=== PATIENT | male | born 1990 | race Caucasian/White ===

== ENCOUNTER → 2018-08-15 | Outpatient (CLI) | payer MEDICAID ==
--- NOTE | 2018-08-15 20:27 | ECHOF ---
Referral Reason:R07.2 Precordial painR00.2 Palpations MEASUREMENTS -------- HEIGHT: 172.7 cm WEIGHT: 76.2 kg BP: IVSd: 1.0 cm (0.6 - 1.1) LVIDd: 4.7 cm (3.9 - 5.3) LVPWd: 1.0 cm (0.6 - 1.1) IVSs: 1.5 cm LVIDs: 3.0 cm LVPWs: 1.6 cm RVIDd: 2.2 cm (< 3.3) LAESV Index (A-L): 17.69 ml/m Ao Diam: 2.8 cm (2.0 - 3.7) LA Diam: 2.9 cm (2.7 - 3.8) AV Cusp: 2.0 cm (1.5 - 2.6) EPSS: 1.0 cm MV E Sebastián: 0.99 m/s MV DecT: 211 ms MV A Sebastián: 0.55 m/s MV E/A Ratio: 1.80 RAP: 5.00 mmHg RVSP: 19.44 mmHg MV EF SLOPE: 251.44 mm/s (70 - 150) MV EXCURSION: 28.96 mm (> 18.000) FINDINGS -------- Sinus rhythm with extra systolic beats. This was a technically good study. The left ventricular size is normal. Left ventricular wall thickness is normal. Overall left vent ricular systolic function is normal with, an EF between 55 - 60 %. The right ventricle is normal in size and function. The left atrium is normal in size. The right atrium is normal in size. The aortic valve is trileaflet, and appears structurally normal. No aortic stenosis or regurgitation. There is trace mitral regurgitation. Trace tricuspid regurgitation present. The right ventricular systolic pressure, as measured by Dopp ler, is 19.44mmHg. Pulmonic valve appears structurally normal. The aortic root size is normal. Normal inferior vena cava with normal inspiratory collapse consistent with estimated right atrial pre ssure of 5 mmHg. The pericardium is normal. CONCLUSIONS -------- 1. Sinus rhythm with extra systolic beats. 2. This was a technically good study. 3. The left ventricular size is normal. 4. Left ventricular wall thickness is normal. 5. Overall left ventricular systolic function is normal with, an EF between 55 - 60 %. 6. The right ventricle is normal in size and function. 7. The left atrium is normal in size. 8. The right atrium is normal in size. 9. The aortic valve is trileaflet, and appears structurally normal. No aortic stenosis or regurgitati on. 10. There is trace mitral regurgitation. 11. Trace tricuspid regurgitation present. 12. The right ventricular systolic pressure, as measured by Doppler, is 19.44mmHg. 13. Pulmonic valve appears structurally normal. 14. The aortic root size is normal. 15. Normal inferior vena cava with normal inspiratory collapse consistent with estimated right atrial pressure of 5 mmHg. 16. The pericardium is normal. SENIOR STAFF CONSULTANT: Love Walsh RDCS
--- NOTE | 2018-08-16 12:28 | EST ---
EXERCISE STRESS AGE: 27 SEX: M HT: 68" WT: 168 PROTOCOL: Stress Test STAGE: 4 DURATION OF EXERCISE: 9:40 HEART RATE REST: 69 BLOOD PRESSURE REST: 136/85 MAXIMUM HEART RATE ACHIEVED: 147 MAXIMUM BLOOD PRESSURE: 204/96 85% MPHR: 165 100% MPHR: 194 METS: 11.3 INDICATIONS: Chest pain, tachycardia CLINICAL INFORMATION: Baseline heart rate 69 beats per minute. Baseline blood pressure 136/85 mmHg. Baseline 12-lead ECG shows normal sinus rhythm with normal cardiac intervals, normal ST segments. Patient exercised on a Last protocol for 9 minutes 40 seconds achieving a peak heart rate of 147 beats per minute. Hypertensive response to exercise was noted. Peak blood pressure 204/96 mmHg. There was no ECG evidence for ischemia. No arrhythmias noted. IMPRESSION: 1. Excellent exercise capacity. 2. Hypertensive response to exercise. 3. No ECG evidence for ischemia. MMODL / IJN: [id number] /
== END | disposition home or self-care (01) ==
LOC: RADNMMAIN 08:47 → MERGE 09:00
PROVIDERS: ATTEND Internal Medicine Clinical Cardiac Electrophysiology
DX: R00.2 Palpitations (principal); R07.2 Precordial pain
CPT/HCPCS: 93017; 93225; 93226; 93306

== ENCOUNTER → 2018-11-08 | Outpatient (CLI) | payer MEDICAID ==
--- NOTE | 2018-11-08 14:38 | XR ---
EXAMINATION TYPE: XR elbow complete bilateral DATE OF EXAM: 11/08/2018 CLINICAL HISTORY: Chronic pain and stiffness of the bilateral elbows TECHNIQUE: Frontal, lateral and oblique images of the both elbows were obtained. COMPARISON: None FINDINGS: There is no acute fracture/dislocation evident in either elbow. No abnormal fat pad signs are seen. The overlying soft tissue appears unremarkable. No radiopaque foreign body. Osseous mica miner alization is within normal limits. No significant arthropathy is seen radiographically. No suspicious lesion. IMPRESSION: There is no acute fracture or dislocation in either elbow. No suspicious lesion nor radi ographic arthropathy.
--- NOTE | 2018-11-08 14:41 | XR ---
EXAMINATION TYPE: XR hand complete bilateral DATE OF EXAM: 11/08/2018 CLINICAL HISTORY: Chronic pain and stiffness of the bilateral hands TECHNIQUE: Frontal, lateral and oblique images of the bilateral hands were obtained. COMPARISON: None. FINDINGS: There is no acute fracture/dislocation evident in either hand. The joint spaces in the bailey ateral hands appear within normal limits other than small erosion of the trapezius on the left. The overlying soft tissue appears unremarkable. No suspicious osseous lesion. Punctate densities are seen of the bilateral lower aspect of the thumbs near the distal interphalangeal joints that may represen t skin calcifications are less likely foreign bodies. Osseous mineralization is within normal limits. IMPRESSION: There is no acute fracture or dislocation in either hand. Small erosion of the left trap ezius may relate to early arthropathy. Gout or pseudogout could be considered. Punctate densities ove r the volar surface of the thumbs appear as skin calcifications or punctate foreign bodies overlying the distal interphalangeal joints.
== END | disposition home or self-care (01) ==
LOC: RADXRMAIN 08:41
PROVIDERS: ATTEND Family Medicine
DX: M25.521 Pain in right elbow (principal); M79.641 Pain in right hand

== ENCOUNTER → 2018-11-29 | Outpatient (CLI) | payer MEDICAID ==
[2018-11-29 09:34] LABS: Basophils % (A) 1 %; Eosinophils # (A) 0.1 k/uL (0-0.7); Eosinophils % (A) 2 %; HCT 43.7 % (39.0-53.0); HGB 15.3 gm/dL (13.0-17.5); Lymphocytes # (A) 1.6 k/uL (1.0-4.8); Lymphocytes % (A) 36 %; MCH 30.8 pg (25.0-35.0); MCV 88.2 fL (80.0-100.0); Mean Platelet Volume 8.6; Monocytes # (A) 0.4 k/uL (0-1.0); Monocytes % (A) 8 %; Neutrophils # (A) 2.4 k/uL (1.3-7.7); Neutrophils % (A) 52 %; Platelet Count 190 k/uL (150-450); RBC 4.95 m/uL (4.30-5.90); RDW 12.8 % (11.5-15.5); WBC 4.5 k/uL (3.8-10.6)
[2018-11-29 09:35] LABS: Appearance,Urine Clear (Clear); Bilirubin,Urine Negative (Negative); Blood,Urine Negative (Negative); Color,Urine Yellow; Glucose,Urine (UA) Negative (Negative); Ketones,Urine Negative (Negative); Leukocyte Esterase,Urine Negative (Negative); Nitrite,Urine Negative (Negative); PH, Urine 5.5 (5.0-8.0); Protein,Urine Negative (Negative); Specific Gravity,Urine 1.024 (1.001-1.035); Urobilinogen,Urine <2.0 mg/dL (<2.0)
--- NOTE | 2018-11-29 10:43 | XR ---
EXAMINATION TYPE: XR cervical spine comp DATE OF EXAM: 11/29/2018 TECHNIQUE: Frontal, lateral, oblique, and open mouth view of the cervical spine are obtained. HISTORY: M13.0 polyarthritis neck pain since June per patient COMPARISON: None FINDINGS: The cervical spine is visualized in its entirety from C1 thru the top of T1 level, it is s atisfactory in alignment without evidence of acute fracture or dislocation. The pre-vertebral soft t issue appears within normal limits. The C1-C2 articulation is within normal limits on the open mouth view. Vertebral body heights and disc space heights are maintained. No significant spurring. The obl ique images are within normal limits. Overlying soft tissue is unremarkable. IMPRESSION: Unremarkable study.
--- NOTE | 2018-11-29 10:45 | XR ---
EXAMINATION TYPE: XR lumbosacral spine min 4V DATE OF EXAM: 11/29/2018 CLINICAL HISTORY: Injury in May with pain. Polyarthritis per order. TECHNIQUE: Frontal, lateral, and oblique images of the lumbar spine are obtained. COMPARISON: None FINDINGS: There are 5 lumbar type vertebral bodies identified. The lumbar spine shows straightened alignment on lateral views without evidence of acute fracture or dislocation. Bilateral pars defects L5 level felt present with slight grade 1 retrolisthesis of L5 on S1 measured approximately 7 mm marian g posterior vertebral body margin. IMPRESSION: Spondylolisthesis L5-S1 level with suspected underlying bilateral pars defects L5 level. Overall loss of normal lumbar lordosis.
--- NOTE | 2018-11-29 10:46 | XR ---
EXAMINATION TYPE: XR pelvis AP view DATE OF EXAM: 11/29/2018 CLINICAL HISTORY: Polyarthritis per order. Pelvic pain for 2 years per patient. TECHNIQUE: A single AP view of the pelvis is obtained. COMPARISON: None. FINDINGS: There is no acute fracture/dislocation evident in the pelvis. The sacroiliac joints appea r to show mild to moderate right greater than left narrowing with suggestion of some joint space scle rosis. There is mild to moderate symmetric axial joint space loss in both hips without significant s purring. Scattered pelvic phleboliths are present. IMPRESSION: As above. Possible bilateral sacroiliitis, correlate clinically.
[2018-11-29 16:37] LABS: Protein, Total 6.2 g/dL (6.2-8.2)
[2018-11-29 16:58] LABS: ALT 35 U/L (10-49); AST 21 U/L (14-35); Albumin/Globulin Ratio 3.13 (1.60-3.17); Alkaline Phosphatase 70 U/L (41-126); C Reactive Protein <0.4 mg/dL (0.0-0.8); Calcium 9.8 mg/dL (8.7-10.3); Carbon Dioxide 28.3 mmol/L (21.6-31.8); Chloride 105 mmol/L (96-109); Creatine Kinase 86 U/L (35-257); Globulin 1.5 g/dL (1.6-3.3); Glucose 89 mg/dL (70-110); Potassium 3.8 mmol/L (3.5-5.5); Sodium 142 mmol/L (135-145); Total Bilirubin 0.8 mg/dL (0.3-1.2); Total Protein 6.2 g/dL (6.2-8.2); Uric Acid 4.9 mg/dL (3.7-8.7)
[2018-11-30 11:52] LABS: APTT 36 Sec(s) (<43); Dilute Russell Viper Venom 35 Sec(s) (<44)
[2018-11-30 12:06] LABS: Albumin 4.33 g/dL (3.80-4.90); Gamma Globulin 0.59 g/dL (0.70-1.50)
[2018-11-30 12:15] LABS: HLA B27 NEGATIVE
[2018-11-30 12:31] LABS: Aldolase 4.5 U/L (1.2-7.6)
[2018-11-30 12:38] LABS: Angiotensin-1 Converting Enz. 26 U/L (8-52)
[2018-11-30 15:07] LABS: C-ANCA <1:20 Titer (<1:20); P-ANCA <1:20 Titer (<1:20)
[2018-11-30 21:52] LABS: Cardiolipin Ab IgG Interp NEGATIVE (NEGATIVE); Cardiolipin Ab IgM Interp NEGATIVE (NEGATIVE); Cardiolipin IgA Antibody 1.2 U/mL; Cardiolipin IgM Antibody 2.6 U/mL
[2018-12-01 13:41] LABS: Centromere Antibody Interp NEGATIVE (NEGATIVE); RNP 0.6 AI; Scleroderma SC-70 Ab <0.2 AI
== END | disposition home or self-care (01) ==
LOC: LABWHC1 08:43
PROVIDERS: ATTEND Physician Assistant Medical
DX: M43.17 Spondylolisthesis, lumbosacral region (principal); M53.3 Sacrococcygeal disorders, not elsewhere classified; M13.0 Polyarthritis, unspecified; R76.8 Other specified abnormal immunological findings in serum
CPT/HCPCS: 36415; 72050; 72110; 72170; 80053; 81003; 82085; 82164; 82550; 83516; 83883; 84165; 84439; 84443; 84550; 85025; 85613; 85730; 86038; 86140; 86147; 86160; 86162; 86200; 86235; 86255; 86334; 86812

== ENCOUNTER → 2018-12-18 | Outpatient (CLI) | payer MEDICAID ==
--- NOTE | 2018-12-19 14:56 | MR ---
MR sacroiliac joints HISTORY: Sacroiliitis Multiplanar multisequence imaging through the sacroiliac joints Correlation lumbar spine 11/29/2018 Sacroiliac joints show normal appearance, there is no marrow signal change. There is no ankylosis, er osion, or hypertrophic change. Small focus of increased signal in the right sacral ala T1 and T2-weig hted sequences may represent small hemangioma. Disc spaces at the lower lumbar spine, lumbosacral venu ction are normal. There is no free fluid within the pelvis. Hip joints show an unremarkable appearan ce. Urinary bladder shows a normal appearance. IMPRESSION: Normal sacroiliac joints
== END | disposition home or self-care (01) ==
LOC: RADMRIMAIN 19:40
PROVIDERS: ATTEND Physician Assistant Medical
DX: M46.1 Sacroiliitis, not elsewhere classified (principal)
CPT/HCPCS: 72195

== ENCOUNTER → 2019-02-16 | Outpatient (CLI) | payer MEDICAID ==
--- NOTE | 2019-02-18 18:43 | MR ---
EXAMINATION TYPE: MR lumbar spine wo con DATE OF EXAM: 02/16/2019 COMPARISON: 11/29/2018 HISTORY: LBP, injury 2017 TECHNIQUE: Multiplanar, multisequence images of the lumbar spine were acquired. FINDINGS: Very minimal retrolisthesis of L5 on S1 is again noted as seen on the prior radiographs. Mi nimal disc desiccation is seen of the lower lumbar spine. This medullaris is unremarkable terminating at L1-L2. No vertebral body height loss of the lumbar spine. Bone marrow signal is within normal bose its. Musculature is symmetric in the paraspinal regions. L1-L2: No significant disc disease, spinal canal stenosis, nor neural foraminal narrowing. L2-L3: Vertebral body hemangioma that is T2/T1 hyperintense is noted of L2. No significant disc disea se, spinal canal stenosis, nor neural from narrowing. L3-L4: Small broad-based disc bulge is seen that is right eccentric resulting in minimal right neural foraminal narrowing. No left neural foraminal narrowing or spinal canal stenosis. L4-L5: There is a right eccentric disc bulge creating minimal right neural foraminal narrowing. No sp inal canal stenosis or left neural foraminal narrowing. L5-S1: There is a punctate central annular tear seen on sagittal T2 nonfat sat image 9 inferiorly. Th ere is a broad-based disc bulge without spinal canal stenosis nor neural foraminal narrowing. IMPRESSION: 1. No focal disc herniation or spinal canal stenosis. 2. Very minimal retrolisthesis of L5 on S1 as seen on the x-rays of 11/29/2018. 3. Mild degenerative disc disease at L3-S1 resulting in minimal right neural foraminal narrowing at L 3-L4 and L4-L5. Punctate central annular tear at L5-S1 is incidentally seen.
== END | disposition home or self-care (01) ==
LOC: RADMRIMAIN 21:42
PROVIDERS: ATTEND Psychiatry & Neurology Neurology
DX: M48.061 Spinal stenosis, lumbar region without neurogenic claudication (principal); M43.16 Spondylolisthesis, lumbar region; M51.36 Other intervertebral disc degeneration, lumbar region
CPT/HCPCS: 72148

== ENCOUNTER → 2020-05-06 | Outpatient (CLI) | payer MEDICAID | END | disposition home or self-care (01) | LOC: LABWHC1 12:01 | PROVIDERS: ATTEND Family Medicine | DX: Z03.818 Encounter for observation for suspected exposure to other biological agents ruled out (principal) ==

== ENCOUNTER → 2020-09-18 | Outpatient (CLI) | payer MEDICAID ==
--- NOTE | 2020-09-18 18:02 | XR ---
EXAMINATION: XR chest 2V DATE AND TIME: 09/18/2020 5:42 PM CLINICAL INDICATION: PHH; PRE-EMPLOYMENT XR TECHNIQUE: Departmental protocol COMPARISON: 06/29/2018 FINDINGS: The lungs are clear. The pleural spaces are negative. The cardiac silhouette is not enlarged. The remainder of the mediastinal silhouette is unremarkable. The skeletal structures and soft tissues are negative for acute findings. IMPRESSION: NO ACUTE PROCESS.
== END | disposition home or self-care (01) ==
LOC: RADXRMAIN 17:31
PROVIDERS: ATTEND Emergency Medicine
DX: Z02.1 Encounter for pre-employment examination (principal)
CPT/HCPCS: 71046

== ENCOUNTER 2021-01-22 15:30 | Emergency (ER) | payer MEDICAID ==
[2021-01-22 15:49] VITALS: RESP 16
[2021-01-22 15:54] VITALS: BP 132/84; PULSE 54; TEMP 98.2
[2021-01-22] MEDS ORDERED: KETOROLAC 15 MG/ML 1 ML VIAL IM STA (15:59)
--- NOTE | 2021-01-22 16:39 | XR ---
EXAMINATION TYPE: XR shoulder complete LT DATE OF EXAM: 01/22/2021 CLINICAL HISTORY: Injury with pain TECHNIQUE: Three views of the left shoulder are obtained. COMPARISON: None. FINDINGS: There is no acute fracture/dislocation evident in the left shoulder. The acromioclavicula r and glenohumeral joint spaces appear within normal limits. Ovoid sclerotic focus humeral head is no nspecific finding but favor benign bone island or other nonaggressive etiology. The visualized ribs a re intact and unremarkable. IMPRESSION: There is no acute fracture or dislocation in the left shoulder.
--- NOTE | 2021-01-22 16:53 | ED ---
Upper Extremity HPI - General Chief Complaint: Extremity Injury, Upper Stated Complaint: L shoulder pain Time Seen by Provider: 01/22/21 15:55 Source: patient, RN notes reviewed Mode of arrival: ambulatory Limitations: no limitations - History of Present Illness Initial Comments: Patient is a 30-year-old male that presents to emergency department complaining of left shoulder pain. He notes that he tried lifting his lawnmower a couple days ago and then felt a pop in his left shoulder. He notes that the pain is isolated to the anterior aspect over the acromion process. Patient notes that he can still lift his arm is just painful. He notes that his pain did not prevent him from going to work today but he did come emergency room after finishing his shift. Otherwise patient was a well-appearing 30-year-old male in no apparent distress. He denied numbness tingling in his left upper extremity. He did have full strength and range of motion of his lower upper extremity. He denied any chest pain shortness breath headache nausea vomiting diarrhea constipation fever fatigue chills. - Related Data Home Medications Medication Instructions Recorded Confirmed ALPRAZolam [Xanax] 1 mg PO DAILY PRN 06/29/18 06/29/18 Previous Rx's Medication Instructions Recorded Ibuprofen [Motrin] 800 mg PO Q6HR #30 tab 01/22/21 predniSONE 50 mg PO DAILY #5 tab 01/22/21 Allergies Allergy/AdvReac Type Severity Reaction Status Date / Time No Known Allergies Allergy Verified 01/22/21 15:51 Review of Systems ROS Statement: Those systems with pertinent positive or pertinent negative responses have been documented in the HPI. ROS Other: All systems not noted in ROS Statement are negative. Past Medical History Additional Past Medical History / Comment(s): anxiety History of Any Multi-Drug Resistant Organisms: None Reported Past Surgical History: Orthopedic Surgery Past Psychological History: Anxiety Smoking Status: Current every day smoker Past Alcohol Use History: None Reported Past Drug Use History: None Reported General Exam Limitations: no limitations General appearance: alert, in no apparent distress Head exam: Present: atraumatic, normocephalic, normal inspection Eye exam: Present: normal appearance, PERRL, EOMI. Absent: scleral icterus, conjunctival injection, periorbital swelling Neck exam: Present: normal inspection Respiratory exam: Present: normal lung sounds bilaterally. Absent: respiratory distress, wheezes, rales, rhonchi, stridor Cardiovascular Exam: Present: regular rate, normal rhythm, normal heart sounds. Absent: systolic murmur, diastolic murmur, rubs, gallop, clicks Left Shoulder Exam: Present: normal inspection, tenderness (Over the anterior aspect at the acromion process.). Absent: full ROM (Secondary to pain), swelling, ab rasion, laceration, ecchymosis, deformity, crepitus, dislocation Neurological exam: Present: alert, oriented X3 Psychiatric exam: Present: normal affect, normal mood Skin exam: Present: warm, dry, intact, normal color. Absent: rash Course Vital Signs 01/22/21 01/22/21 15:47 15:51 Temperature 98 F 98.2 F Pulse Rate 77 54 L Respiratory 16 16 Rate Blood Pressure 112/71 132/84 O2 Sat by Pulse 98 98 Oximetry Medical Decision Making - Medical Decision Making 30-year-old male complaining of left shoulder pain after lifting his lumbar and feeling a pop. X-ray left shoulder, 15 mg of Toradol ordered. X-ray imaging negative for any acute fractures dislocations. Given clinical symptoms and negative imaging most likely soft tissue injury or muscle tear. Swelling ordered. Case discussed with Dr. Griffin, patient can discharge home with follow-up to orthopedics and primary care as needed. - Radiology Data Radiology results: report reviewed, image reviewed X-ray of shoulder: There is no fracture or dislocation left shoulder. Disposition Clinical Impression: Strain of shoulder Disposition: HOME SELF-CARE Condition: Stable Instructions (If sedation given, give patient instructions): Shoulder Sprain (ED), Shoulder Pain (ED) Additional Instructions: Please return to the Emergency Department if symptoms worsen or any other concerns. Follow-up with orthopedist as soon as possible. Wear sling throughout the day to prevent any unnecessary movement. Take Motrin and steroids as prescribed. Is patient prescribed a controlled substance at d/c from ED?: No Referrals: Jayjay Becker MD [Primary Care Provider] - 1-2 days Abran Anderson PAC [PHYSICIAN BEREAVEMENT COORDINATOR] - 1-2 days Time of Disposition: 16:54
== END 2021-01-22 17:18 | disposition home or self-care (01) ==
LOC: EC 15:30
DX: S46.912A Strain of unspecified muscle, fascia and tendon at shoulder and upper arm level, left arm, initial encounter (principal); F17.200 Nicotine dependence, unspecified, uncomplicated; F41.9 Anxiety disorder, unspecified; X50.9XXA Other and unspecified overexertion or strenuous movements or postures, initial encounter
CPT/HCPCS: 73030; 99283; 96372; J1885

== ENCOUNTER → 2022-04-14 | Outpatient (CLI) | payer MEDICAID ==
--- NOTE | 2022-04-14 08:58 | US ---
EXAMINATION TYPE: US liver DATE OF EXAM: 04/14/2022 COMPARISON: NONE CLINICAL HISTORY: R94.5 Abnormal results of liver function studies. Elevated liver enzymes TECHNIQUE: Multiple sonographic images of the right upper quadrant are obtained. FINDINGS: EXAM MEASUREMENTS: Liver Length: 15.5 cm Gallbladder Wall: 0.2 cm CBD: 0.3 cm Right Kidney: 9.6 x 4.7 x 5.6 cm Pancreas: visualized portions wnl, limited by overlying midline bowel gas Liver: Increased attenuation Gallbladder: wnl Evidence for sonographic Rios's sign: no CBD: visualized portions wnl, limited by overlying bowel gas Right Kidney: wnl Visualized portion of pancreas unremarkable. Visualized liver heterogeneously hyperechoic without foc al mass or ductal dilatation. No right-sided hydronephrosis. No intraluminal gallstones. IMPRESSION: Heterogeneous hyperechoic appearance of liver suggesting mild diffuse fatty infiltration.
== END | disposition home or self-care (01) ==
LOC: RADUSWWP 07:38
PROVIDERS: ATTEND Family Medicine
DX: R94.5 Abnormal results of liver function studies (principal)
CPT/HCPCS: 76705

== ENCOUNTER 2024-05-07 01:04 | Emergency (ER) | payer BC ==
[2024-05-07 01:19] VITALS: RESP 18; TEMP 98
--- NOTE | 2024-05-07 01:39 | XR ---
EXAMINATION TYPE: XR chest 2V DATE OF EXAM: 05/07/2024 COMPARISON: Chest x-ray 2020 HISTORY: Cough and congestion. Sore throat. TECHNIQUE: Frontal and lateral views of the chest are obtained. FINDINGS: There is no suspicious new focal air space opacity, pleural effusion, or pneumothorax seen . The cardiac silhouette size is stable and within normal limits. The osseous structures are intac t. IMPRESSION: No acute pulmonary process. No significant change from prior. [facility], , 05/07/2024 1:36 AM
--- NOTE | 2024-05-07 02:21 | ED ---
URI HPI - General Chief Complaint: Upper Respiratory Infection Stated Complaint: SEDRICK Time Seen by Provider: 05/07/24 01:27 Source: patient Mode of arrival: ambulatory Limitations: no limitations - History of Present Illness Initial Comments: 33-year-old male presenting with URI-like symptoms. Patient admits to cough congestion and sore throat. Symptoms started earlier today. Patient states "it garber when I breathe". This is a nonproductive cough. No fever. No difficulty breathing. No nausea vomiting or abdominal pain. He took some leftover st eroids to try to help the symptoms earlier today. - Related Data Home Medications Medication Instructions Recorded Confirmed ALPRAZolam [Xanax] 1 mg PO DAILY PRN 06/29/18 06/29/18 Previous Rx's Medication Instructions Recorded Ibuprofen [Motrin] 800 mg PO Q6HR #30 tab 01/22/21 predniSONE 50 mg PO DAILY #5 tab 01/22/21 Amoxicillin 500 mg PO Q12HR 10 Days #20 cap 05/07/24 Allergies Allergy/AdvReac Type Severity Reaction Status Date / Time No Known Allergies Allergy Verified 05/07/24 01:19 Review of Systems ROS Statement: Those systems with pertinent positive or pertinent negative responses have been documented in the HPI. ROS Other: All systems not noted in ROS Statement are negative. Past Medical History Additional Past Medical History / Comment(s): anxiety History of Any Multi-Drug Resistant Organisms: None Reported Past Surgical History: Orthopedic Surgery Past Psychological History: Anxiety Smoking Status: Current every day smoker, Vaper Past Alcohol Use History: None Reported Past Drug Use History: None Reported General Exam Limitations: no limitations General appearance: alert, in no apparent distress Head exam: Present: atraumatic, normocephalic, normal inspection Eye exam: Present: normal appearance, EOMI ENT exam: Present: normal exam, normal oropharynx, mucous membranes moist Neck exam: Present: normal inspection. Absent: meningismus Respiratory exam: Present: normal lung sounds bilaterally. Absent: respiratory distress, wheezes, rales, rhonchi, stridor Cardiovascular Exam: Present: regular rate, normal rhythm, normal heart sounds. Absent: systolic murmur, diastolic murmur, rubs, gallop, clicks Neurological exam: Present: alert, oriented X3 Psychiatric exam: Present: normal affect, normal mood Skin exam: Present: warm, dry Course Vital Signs 05/07/24 05/07/24 01:17 02:30 Temperature 98 F Pulse Rate 78 55 L Respiratory 18 18 Rate Blood Pressure 118/81 116/64 O2 Sat by Pulse 97 98 Oximetry Medical Decision Making - Medical Decision Making 33-year-old male presenting with chief complaint of cough congestion and sore throat. History and physical examination are conducted. Patient is positive for group A strep. Viral testing is negative and chest x-ray shows no acute pr ocess. Patient educated on today's findings. He will be treated with amoxicillin. Discharged. Follow-up with PCP. Report back to ER with any new or worsening symptoms. Discussed return parameters and answered all questions. Patient conveyed verbal understanding and agreed to the plan. I discussed this case in detail with my attending Dr. Peña Was pt. sent in by a medical professional or institution (, PA, [employer], urgent care, hospital, or [facility]...) When possible be specific @ -No Did you speak to anyone other than the patient for history (EMS, parent, family, police, friend...)? What history was obtained from this source @ -No Did you review nursing and triage notes (agree or disagree)? Why? @ -I reviewed and agree with nursing and triage notes Were old charts reviewed (outside hosp., previous admission, EMS record, old EKG, old radiological studies, urgent care reports/EKG's, [facility] records)? Report findings @ -No old charts were reviewed Differential Diagnosis (chest pain, altered mental status, abdominal pain women, abdominal pain men, vaginal bleeding, weakness, fever, dyspnea, syncope, headache, dizziness, GI bleed, back pain, seizure, CVA, palpatations, mental health, musculoskeletal)? @ -Differential includes strep throat, viral pharyngitis, viral URI, pneumonia, bronchitis, this is not an all-inclusive list EKG interpreted by me (3pts min.). @ -As above X-rays interpreted by me (1pt min.). @ -Chest x-ray shows no acute process CT interpreted by me (1pt min.). @ -None done U/S interpreted by me (1pt. min.). @ -None done What testing was considered but not performed or refused? (CT, X-rays, U/S, labs)? Why? @ -None What meds were considered but not given or refused? Why? @ -None Did you discuss the management of the patient with other professionals (professionals i.e. , PA, [employer], lab, RT, psych nurse, psychologist social, emotional disabilities teacher, teacher, ship's officer, casework supervisor)? Give summary @ -No Was smoking cessation discussed for >3mins.? @ -No Was critical care preformed (if so, how long)? @ -No Were there social determinants of health that impacted care today? How? (Homelessness, low income, unemployed, alcoholism, drug addiction, transportation, low edu. Level, literacy, decrease access to med. care, long term, rehab)? @ -No Was there de-escalation of care discussed even if they declined (Discuss DNR or withdrawal of care, Hospice)? DNR status @ -No What co-morbidities impacted this encounter? (DM, HTN, Smoking, COPD, CAD, Cancer, CVA, ARF, Chemo, Hep., AIDS, mental health diagnosis, sleep apnea, morbid obesity)? @ -None Was patient admitted / discharged? Hospital course, mention meds given and route, prescriptions, significant lab abnormalities, going to OR and other pertinent info. @ -Discharge, see below for details Undiagnosed new problem with uncertain prognosis? @ -No Drug Therapy requiring intensive monitoring for toxicity (Heparin, Nitro, Insulin, Cardizem)? @ -No Were any procedures done? @ -No Diagnosis/symptom? @ -Strep pharyngitis Acute, or Chronic, or Acute on Chronic? @ -Acute Uncomplicated (without systemic symptoms) or Complicated (systemic symptoms)? @ -Uncomplicated Side effects of treatment? @ -No Exacerbation, Progression, or Severe Exacerbation? @ -No Poses a threat to life or bodily function? How? (Chest pain, [place], [place], pneumonia, PE, COPD, DKA, ARF, appy, cholecystitis, CVA, Diverticulitis, Homicidal, Suicidal, threat to staff... and all critical care pts) @ -Unlikely - Lab Data Lab Results 05/07/24 05/07/24 Range/Units 01:21 01:21 Influenza Type A (PCR) Not Detected (Not Detectd) Influenza Type B (PCR) Not Detected (Not Detectd) RSV (PCR) Not Detected (Not Detectd) SARS-CoV-2 (PCR) Not Detected (Not Detectd) Group A Strep (PCR) DETECTED A (Not Detectd) Disposition Clinical Impression: Strep pharyngitis Disposition: HOME SELF-CARE Condition: Good Instructions (If sedation given, give patient instructions): Strep Throat (ED) Additional Instructions: Follow-up with PCP. Report back to ER with any new or worsening symptoms. Prescriptions: Amoxicillin 500 mg PO Q12HR 10 Days #20 cap Is patient prescribed a controlled substance at d/c from ED?: No Referrals: Jayjay Becker MD [Primary Care Provider] - 1-2 days Time of Disposition: 02:20
[2024-05-07] MEDS: AMOXICILLIN 500 MG CAP PO STA (02:28)
[2024-05-07 02:50] VITALS: BP 116/64; PULSE 55
== END 2024-05-07 02:30 | disposition home or self-care (01) ==
LOC: EC 01:04
CPT/HCPCS: 71046; 87636; 87651; 99285